=== PATIENT | female | born 1945 | race Caucasian/White ===

== ENCOUNTER 2017-08-05 23:21 | Emergency (ER) | payer MEDICARE, OTHER ==
[2017-08-05] MEDS ORDERED: ONDANSETRON HCL/PF 4 MG/ 2ML VIAL IVP ONE (23:40)
[2017-08-05] MEDS ORDERED: 0.9 % SODIUM CHLORIDE 250 ML IV.SOLN IV ONE (23:45)
--- NOTE | 2017-08-05 23:48 | ED Physician Documentation ---
General Adult - HISTORIAN Historian: patient, paramedics - [facility] Stated Complaint: Nausea/Dizziness Chief Complaint: General Adult Additional Information: [place] lightheaded and sat down. Had an episode of diarrhea today. Bailey hot an hour before dizziness. She is nauseated and this worsens if she sits up. Had not eaten all day. Had similar episode years ago she says. Friend says she had similar episode months ago. She had esophageal dilation yesterday after food bolus, in . When she woke from that procedure, she had lost remaining vision in right eye. Had procedure on right eye today in [place]. FSG 137 in ambulance.No other associated signs or modifying factors. - ROS CONST: denies: fever EYES/ENT: problems with vision (chronic loss central vision OD, lost peripheral vision OD yesterday) NEURO/PSYCH: dizziness (lightheaded) - PAST HX Past History: other (DM) Other History: diabetes Type 2 Allergies/Adverse Reactions: Allergies Allergy/AdvReac Type Severity Reaction Status Date / Time prochlorperazine Allergy Severe Anaphylaxis Verified 08/05/17 23:44 [From Compazine] prochlorperazine edisylate Allergy Severe Anaphylaxis Verified 08/05/17 23:44 [From Compazine] prochlorperazine maleate Allergy Severe Anaphylaxis Verified 08/05/17 23:44 [From Compazine] meperidine HCl [From Demerol] Allergy Intermediate Nausea/Vomi Verified 23:44 ting Home Medications: Ambulatory Orders Medication Instructions Recorded Lisinopril [Zestril] 2.5 mg PO QDAY 08/06/17 Metformin HCl [Glucophage] 500 mg PO BID 08/06/17 Rivaroxaban [Xarelto] 1 each PO QDAY 08/06/17 Ropinirole HCl [Requip] 2 mg PO HS 08/06/17 - SOCIAL HX Smoking History: non-smoker Alcohol Use: none Drug Use: none - FAMILY HX Family History: Yes - REVIEWED ASSESSMENTS Nursing Assessment Reviewed: Yes Vitals Reviewed: Yes ED Results Lab/Radiology - Orders Orders: ED Orders Category Date Time Status Continuous EKG monitoring Q1H Care 08/05/17 23:40 Ordered Orthostatics 1T Care 08/05/17 23:[address] IV Lock 1T Care 08/05/17 23:40 Ordered CHEST 1VIEW [RAD] Stat Exams 08/05/17 Ordered CBC/PLATELET/DIFF Routine Lab 08/05/17 Ordered CMP Routine Lab 08/05/17 Ordered URINALYSIS Routine Lab 08/05/17 Ordered 0.9 % Sodium Chloride [Sodium Chloride] Med 08/05/17 23:45 Once 1,000 ml IV 1T ONE Ondansetron HCl/Pf [Zofran 4 mg/2 ml] Med 08/05/17 23:40 Once 4 mg IVP NOW ONE EKG WITH COMPARISON Stat Ther 08/05/17 Ordered General Adult Physical Exam - PHYSICAL EXAM GENERAL APPEARANCE: talkative EENT: eye inspection normal, ENT inspection normal (dentures), pharynx normal, NIYAH, no nystagmus NECK: normal inspection, supple RESPIRATORY: no resp distress, breath sounds normal CVS: reg rate & rhythm, heart sounds normal BACK: normal inspection, no CVA tenderness, other (no vertebral tenderness) SKIN: warm/dry, normal color EXTREMITIES: no evidence of injury, no edema NEURO: CN's nml as tested, motor nml, sensation nml, cognition normal Discharge Clincal Impression: Near syncope Additional Instructions: Rest. Drink plenty of water. Follow up with your provider or return to the ER if your condition worsens. Condition: Fair Disposition: 01 HOME, SELF-CARE Decision to Admit: NO Decision Time: 02:35
[2017-08-05] MEDS: 0.9 % SODIUM CHLORIDE 1,000 ML IV ONE (23:50)
[2017-08-06] MEDS: 0.9 % SODIUM CHLORIDE 1,000 ML IV ONE (00:08)
[2017-08-06 00:26] LABS: BASOPHILS % 0.5 (0.0-1.5); EOSINOPHILS % 3.7 % (0.0-6.8); MEAN CORPUSCULAR HEMOGLOBIN 26.6 pg (28.0-34.0); MEAN CORPUSCULAR VOLUME 86.8 fl (80.0-100.0); MONOCYTES % 3.1 % (0.0-11.0); NEUTROPHILS # 8.3 # k/uL (1.4-7.7)
[2017-08-06 00:33] LABS: eGFR (Non-African) > 60
[2017-08-06] MEDS ORDERED: PROMETHAZINE HCL 25 MG/ML VIAL IM ONE (01:18)
--- NOTE | 2017-08-06 01:25 | Diagnostic Imaging Report ---
ALEXY VICTOR~ [facility] [address] [facility].[address] [address] ~ ~ ~ ~ Report Submission Date: Aug 06, 2017 12:48:27 AM CDT Patient ~ Study Name: [facility] [place] ~ Date: Aug 06, 2017 12:35:11 AM CDT ~ Modality Type: DX Gender: F ~ Description: CHEST : 43 ~ Institution: [facility] Physician: ALEXY VICTOR ~ ~ ~ Portable chest Clinical history: Lightheaded, near syncope, nausea Findings: Examination of the chest in single portable AP view demonstrates the lungs to be clear. Cardiovascular and mediastinal silhouettes are within normal limits for the patient's age. Aorta is atherosclerotic. Monitor leads superimpose the chest. Impression: 1. Aortic atherosclerosis. 2. No active disease. ~ Electronically signed on Aug 06, 2017 12:48:27 AM CDT by: Shadi DE LA ROSA
[2017-08-06 03:04] VITALS: BP 157/55
== END 2017-08-06 02:45 | disposition home or self-care (01) ==
LOC: ED 23:21
DX: R55 Syncope and collapse (principal); R11.0 Nausea
CPT/HCPCS: 71045; 80053; 84484; 85025; 93005; J2405; J2550; J7030; 96365; 96366; 96372; 96375; 99283